=== PATIENT | female | born 1995 | race Caucasian/White ===

== ENCOUNTER 2019-06-04 12:38 | Emergency (ER) | payer MEDICAID ==
[~2019-06-04] VITALS: Ht 170.2 cm; Wt 55.3 kg
[2019-06-04 12:46] VITALS: Ht 170.2 cm; Wt 55.3 kg
[2019-06-04 17:27] VITALS: BP 115/70
== END 2019-06-04 17:27 | disposition home or self-care (01) ==
LOC: ED 12:38
DX: S81.011A Laceration without foreign body, right knee, initial encounter (principal); W23.0XXA Caught, crushed, jammed, or pinched between moving objects, initial encounter; Y93.89 Activity, other specified; Y92.89 Other specified places as the place of occurrence of the external cause; Y99.8 Other external cause status
CPT/HCPCS: 90715; J0696; J1885; J2405; J3010; J3490; Q0092

== ENCOUNTER 2019-06-07 12:19 | Emergency (ER) | payer MEDICAID ==
[~2019-06-07] VITALS: Ht 340.4 cm; Wt 55.3 kg
[2019-06-07 12:24] VITALS: Ht 340.4 cm; Wt 55.3 kg
[2019-06-07 15:46] VITALS: BP 116/69
== END 2019-06-07 15:46 | disposition home or self-care (01) ==
LOC: ED 12:19
DX: S81.011D Laceration without foreign body, right knee, subsequent encounter (principal); X58.XXXD Exposure to other specified factors, subsequent encounter

== ENCOUNTER 2019-06-12 11:34 | Emergency (ER) | payer MEDICAID ==
[~2019-06-12] VITALS: Ht 170.2 cm; Wt 56.2 kg
[2019-06-12 11:36] VITALS: BP 106/61; Ht 170.2 cm; Wt 56.2 kg
== END 2019-06-12 12:38 | disposition home or self-care (01) ==
LOC: ED 11:34
DX: S81.011D Laceration without foreign body, right knee, subsequent encounter (principal); W18.39XD Other fall on same level, subsequent encounter

== ENCOUNTER 2019-06-18 12:19 | Emergency (ER) | payer MEDICAID ==
[~2019-06-18] VITALS: Ht 170.2 cm; Wt 54.9 kg
[2019-06-18 12:29] VITALS: Ht 170.2 cm; Wt 54.9 kg
[2019-06-18 14:09] VITALS: BP 106/65
== END 2019-06-18 14:09 | disposition home or self-care (01) ==
LOC: ED 12:19
DX: S81.011A Laceration without foreign body, right knee, initial encounter (principal); X58.XXXD Exposure to other specified factors, subsequent encounter

== ENCOUNTER 2019-06-21 20:37 | Emergency (ER) | payer MEDICAID ==
[~2019-06-21] VITALS: Ht 170.2 cm; Wt 57.3 kg
[2019-06-21 21:25] VITALS: Ht 170.2 cm; Wt 57.3 kg
[2019-06-21 22:56] VITALS: BP 95/62
== END 2019-06-21 22:56 | disposition home or self-care (01) ==
LOC: ED 20:37
DX: S81.011D Laceration without foreign body, right knee, subsequent encounter (principal); X58.XXXD Exposure to other specified factors, subsequent encounter